=== PATIENT | female | born 2005 | race Two or more races ===

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

== ENCOUNTER 2024-06-22 20:59 | Emergency (ER) | payer MEDICAID, OTHER ==
[~2024-06-22] VITALS: Ht 154.9 cm; Wt 72.6 kg
[~2024-06-22 20:59] MED LIST changes: +ACET-2605 PO
[2024-06-22 23:10] VITALS: BP 130/73; TEMP 99.8
[2024-06-22] MEDS ORDERED: ONDANSETRON HCL/PF 4 MG/2 ML VIAL ONE (23:41)
[2024-06-22] MEDS ORDERED: KETOROLAC TROMETHAMINE 15 MG/ML VIAL ONE (23:41)
[2024-06-22] MEDS ORDERED: IOHEXOL-300 100 ML VIAL IV ONE (23:43)
[2024-06-22] MEDS ORDERED: CT SWABBABLE VALVE TRANS SET 1 EA INFUS.SET MC ONE (23:44)
[2024-06-22] MEDS ORDERED: IV NS 0.9% 250 ML IV ONE (23:47)
[2024-06-22 23:52] LABS: APPEARANCE,URINE CLEAR (CLEAR); BILIRUBIN,URINE 1+ (NEGATIVE); BLOOD, URINE NEGATIVE Ery/uL (NEGATIVE); COLOR,URINE YELLOW (YELLOW); KETONES,URINE TRACE mg/dL (NEGATIVE); LEUKOCYTE ESTERASE ,URINE NEGATIVE (NEGATIVE); NITRITE, URINE NEGATIVE (NEGATIVE); PROTEIN,URINE NEGATIVE (NEGATIVE); UGLUCOSE NEGATIVE (NEGATIVE)
[2024-06-22 23:57] LABS: BASOPHILS % (AUTO) 0.1 % (0.0-2.0); HEMATOCRIT 39 % (33-45); HEMOGLOBIN 13.4 g/dL (11.5-14.8); LYMPHOCYTES # (AUTO) 1.1 K/uL (0.8-4.8); LYMPHOCYTES % (AUTO) 7.9 % (20.0-44.0); MEAN CORPUSCULAR HEMOGLOBIN 30 PG (26.0-33.0); MEAN CORPUSCULAR HGB CONC 35 g/dl (31.0-36.0); MEAN CORPUSCULAR VOLUME 85 fL (82-100); MONOCYTES # (AUTO) 1.1 K/uL (0.1-1.30); MONOCYTES % (AUTO) 7.7 % (2.0-12.0); NEUTROPHILS # (AUTO) 11.9 K/uL (1.8-8.9); NEUTROPHILS % (AUTO) 84.3 % (43.0-81.0); PLATELET COUNT (AUTO) 296 K/uL (150-450); RED BLOOD CELL COUNT(AUTO) 4.53 MIL/uL (4.0-5.2); RED CELL DISTRIBUTION WIDTH 12.9 % (11.5-15.0); WHITE BLOOD COUNT (AUTO) 14.1 K/uL (4.3-11.0)
[2024-06-22 23:59] LABS: PREGNANCY TEST URINE QUAL NEGATIVE (NEGATIVE)
[2024-06-23] MEDS: ONDANSETRON HCL/PF 4 MG/2 ML VIAL IVP ONE (00:02)
[2024-06-23] MEDS: KETOROLAC TROMETHAMINE 15 MG/ML VIAL IV ONE (00:02)
[2024-06-23] MEDS: IV NS 0.9% 1,000 ML BAG IV ONE (00:02)
[2024-06-23 00:15] LABS: LACTIC ACID 1.1 mmol/L (0.4-2.0)
[2024-06-23 00:16] LABS: ADD URINE CULTURE NO; BACTERIA,URINE 1+ /HPF (None Seen); RBC,URINE NONE SEEN /HPF (0-2); WBC,URINE NONE SEEN /HPF (0-3)
[2024-06-23 00:19] LABS: CALCIUM, SERUM 8.5 mg/dL (8.5-10.1); CREATININE 0.8 mg/dL (0.6-1.3); POTASSIUM 3.4 mmol/L (3.5-5.1)
[2024-06-23 00:26] LABS: ALBUMIN 3.8 g/dL (3.4-5.0); BILIRUBIN,DIRECT 0.3 mg/dL (0.0-0.2); BILIRUBIN,TOTAL 1.6 mg/dL (0.2-1.0); TOTAL PROTEIN, SERUM 7.5 g/dL (6.4-8.2)
[2024-06-23] MEDS ORDERED: KETO10TA2 PO (01:56)
[2024-06-23] MEDS ORDERED: ONDA4TAB11 PO (01:56)
[2024-06-23] MEDS ORDERED: METOCLOPRAMIDE HCL 10 MG/2 ML VIAL ONE (02:13)
[2024-06-23 02:15] VITALS: O2SAT 98
[2024-06-23] MEDS: METOCLOPRAMIDE HCL 10 MG/2 ML VIAL IV ONE (02:18)
== END 2024-06-23 02:18 | disposition home or self-care (01) ==
LOC: ER 21:01
DX: A08.4 Viral intestinal infection, unspecified (principal); N12 Tubulo-interstitial nephritis, not specified as acute or chronic; R10.2 Pelvic and perineal pain; Z79.899 Other long term (current) drug therapy; Z20.822 Contact with and (suspected) exposure to COVID-19
CPT/HCPCS: 99285; 74177; 87426; 87804 ×2; 85025; 80048; 83605; 83690; 80076; 84703; 81001; 36415; 96374; 96375; 96361; J7050; A4223; Q9967; J2765; J2405; J7030; J1885